=== PATIENT | female | born 1980 | race Caucasian/White ===

== ENCOUNTER 2020-05-02 19:31 | Inpatient (IN) ==
[2020-05-02] MEDS ORDERED: OXYTOCIN 30 UNITS/500 ML BAG IV PRN (20:51)
[2020-05-02] MEDS ORDERED: miSOPROStoL 50 MCG TAB PO ONE (21:16)
[2020-05-02 21:27] LABS: Hematocrit (blood only) 39.1 % (37-47); Hemoglobin 13.7 g/dL (12.0-16.0); Mean Corpuscular Hemoglobin 33.7 pg (25-34); Mean Corpuscular Volume 96.1 fL (80-100); Mean Platelet Volume 11.4 fL (7.4-10.4); Platelet Count 199 K/uL (130-400); Red Blood Count 4.07 M/uL (4.2-5.4); White Blood Count 10.43 K/uL (4.8-10.8)
[2020-05-02] MEDS ORDERED: PENICILLIN G POTASSIUM 6 MU in DEXTROSE 5% 250 ML IV ONE (21:30)
[2020-05-02] MEDS: LACTATED RINGER'S 1,000 ML IV PRN (21:53)
[2020-05-03] MEDS ORDERED: miSOPROStoL 50 MCG TAB PO ONE (01:56)
[2020-05-03] MEDS: PENICILLIN G POTASSIUM 3 MU in DEXTROSE 5% 100 ML IV PRN ×3 (02:04→10:35)
[2020-05-03] MEDS ORDERED: BUTORPHANOL TARTRATE 1 MG/ML VIAL IV PRN (06:48)
[2020-05-03] MEDS ORDERED: BUPIVACAINE 0.25% 30 ML VIAL ONE (09:21)
[2020-05-03] MEDS ORDERED: ePHEDrine sulfate 50 MG/ML AMP ONE (09:21)
[2020-05-03] MEDS ORDERED: SODIUM CHLORIDE 0.9% INJ 10 ML VIAL ONE (09:21)
[2020-05-03] MEDS ORDERED: fentaNYL citrate 100 MCG/2 ML VIAL ONE (09:22)
[2020-05-03] MEDS ORDERED: fentaNYL 2MCG/ML ROPIVACAINE 1.25MG/ML 100 ML BAG EPI ONE (09:22)
[2020-05-03] MEDS ORDERED: ePHEDrine sulfate 50 MG/ML AMP IV PRN (09:29)
[2020-05-03] MEDS ORDERED: NALOXONE HCL 0.4 MG/1 ML VIAL/CARP IV PRN (09:29)
[2020-05-03] MEDS ORDERED: diphenhydrAMINE 50 MG/ML VIAL IV PRN (09:29)
[2020-05-03] MEDS ORDERED: fentaNYL 2MCG/ML ROPIVACAINE 1.25MG/ML 100 ML BAG EPI PRN (09:29)
[2020-05-03] MEDS ORDERED: NALOXONE HCL 1 MG in SODIUM CHLORIDE 0.9% 1000ML 1,000 ML IV PRN (09:29)
--- NOTE | 2020-05-03 09:29 | Anesthesiology Consultation ---
Date of Service May 03, 2020 Assessment & Plan ASA ASA2 Proposed Anesthesia Anesthesia Type: Labor Epidural Risk / Benefits Reviewed With: PT / POA / Parent / Guardian, Accepts Plan and Informed Consent Obtained History Height/Weight Height: 5 ft 8 in Weight: 88.451 kg Allergies Allergy/AdvReac Type Severity Reaction Status Date / Time walnut Allergy Blister Verified 03/20/20 08:01 acetaminophen [From Tylenol] AdvReac Nausea Verified 05/02/20 20:27 Medications Home Medications Medication Instructions Recorded Confirmed Last Taken levocetirizine [Xyzal] 5 mg PO DAILY 05/02/20 05/02/20 05/02/20 08:00 prenat.vits,tyra,xji-zvvw-kyutj 1 tab PO DAILY 05/02/20 05/02/20 05/02/20 08:00 [ Vitamin] Active Medications Generic Name Dose Route Start Last Admin Trade Name Freq PRN Reason Stop Dose Admin Lactated Ringer's 1,000 mls @ 125 mls/hr 05/02/20 20:51 05/03/20 10:32 Lr IV 05/04/20 20:50 125 mls/hr .Q8H PRN Infusion L&D Protocol Protocol Penicillin G Potassium 3 mu/ 106 mls @ 100 mls/hr 05/02/20 20:51 05/03/20 1 0:35 Dextrose IV 05/12/20 20:50 100 mls/hr Q4H PRN Administration Give until delivery Past Medical History Medical History Panic attack Hasn't had one this Seasonal allergies take benadryl as needed. Exercise / Class Metabolic Activity II 4-5 Yardwork/Stairs/Walk up hill Past Family History Family History Mother Colon cancer Father Pancreatic cancer Past Surgical History Surgical History H/O shoulder surgery reconstructive 1998 [place] teeth extracted Past Anesthesia History No Hx of Anesthesia Complications and No Family Hx of Anesthesia Complications History of PONV No Hx of PONV and No Hx of Motion Sickness Social History Smoking Status: Never smoker Do You Dip or Chew Tobacco: No Hx Alcohol Use: No Hx Substance Use: No substance use type: does not use Review of Systems denies fever/cough/ colds/ chest pain/ SOB/ ODALIS denies ODALIS Physical Exam Vital Signs Last Vital Signs Temp 36.7 C 05/03/20 07:06 Pulse 76 05/03/20 10:38 Resp 22 05/03/20 07:06 BP 128/60 05/03/20 10:36 Pulse Ox 98 05/03/20 10:38 ENMT Mouth: no TMJ abnormality and no dentition abnormality Thyromental Distance: > or= 3.5 Finger Breadths Mallampati Class: II Neck neck extension not limited Respiratory normal respiratory effort; no respiratory distress Auscultation: lungs clear to auscultation bilaterally Cardiovascular Rate/Rhythm: regular rate and regular rhythm Neurologic moves all extremities Psychiatric Orientation: alert and oriented x 3 Testing Laboratory Results 05/02/20 21:17
[2020-05-03] MEDS: LACTATED RINGER'S 1,000 ML IV PRN (10:32)
[2020-05-03] MEDS ORDERED: OXYTOCIN 30 UNITS/500 ML BAG IV PRN ×2 (11:43→14:01)
[2020-05-03] MEDS ORDERED: DIPHTHERIA/TETANUS/PERTUSSIS 0.5 ML SYR/VIAL IM ONE (14:01)
[2020-05-03] MEDS ORDERED: BENZOCAINE 20% AER SPR 82.5 GM CAN EXT PRN (14:01)
[2020-05-03] MEDS ORDERED: HYDROCORTISONE ACETATE 25 MG SUPP PR PRN (14:01)
[2020-05-03] MEDS ORDERED: SUPERCREAM 0.870% 15 GM JAR EXT PRN (14:01)
--- NOTE | 2020-05-03 14:30 | Anesthesia Procedure Note ---
Date of Service May 03, 2020 Anesthesia Post Epidural Note Vital Signs Vital Signs: Temp Pulse Resp BP Pulse Ox 36.7 C 73 20 126/73 98 05/03/20 07:06 05/03/20 14:22 05/03/20 14:03 05/03/20 14:22 05/03/20 13:43 Notes Mental Status: alert / awake / arousable and participated in evaluation Patient Amnestic to Procedure: Yes Nausea / Vomiting: adequately controlled Pain: adequately controlled Airway Patency, RR, SpO2: stable & adequate BP & HR: stable & adequate Hydration State: stable & adequate Anesthetic Complications: no major complications apparent and Pt Satisfied with anesthetic care
[2020-05-03] MEDS: IBUPROFEN 600 MG TAB PO PRN ×3 (15:28→23:38)
--- NOTE | 2020-05-03 16:10 | Delivery Summary ---
DATE OF OPERATION: 05/03/2020 1, para 1. Blood type is B positive, was admitted with rupture of membranes, 37 weeks 2 days. Beta strep screen was sent, but we could get the results back, so we started her on a penicillin. After admission, rupture of membranes was confirmed and she was started on p.o. Cytotec, 4 hours later, another dose of p.o. Cytotec. She began to contract, have discomfort. She walked for a while and got a couple doses of IV Stadol and eventually went to epidural, sooner after she had epidural, she was fully dilated. We let her labor down a little bit, started her on some low dose Pitocin and she was able to push out a live male via direct occiput anterior position over an intact perineum. Infant was suctioned through the mouth and the nose. Body was delivered without difficulty. We allowed the cord to pulse for a minute, then it was clamped and cut. With IV Pitocin running, the placenta was removed intact. Inspection of the perineum revealed a small superficial first-degree laceration at about 6 o'clock. This was repaired anatomically. The vaginal mucosa was approximated out to beyond the hymenal ring. A deep suture was used to approximate the bulbocavernosus muscle, separate deep suture was used to approximate the perineal body and a running subcuticular suture was used to approximate the perineal skin edges. I attest to the content of the Intraoperative Record and any orders documented therein. Any exception s are noted below.
[2020-05-03] MEDS: DOCUSATE SODIUM 100 MG CAP PO SCH (20:50)
[2020-05-04 05:54] LABS: Hemoglobin 11.6 g/dL (12.0-16.0); Mean Corpuscular Hgb Conc 34.1 g/dL (32-36); Mean Corpuscular Volume 96.6 fL (80-100); Mean Platelet Volume 11.5 fL (7.4-10.4); Platelet Count 166 K/uL (130-400); RDW Coefficient of Variation 13.2 % (11.5-14.5); RDW Standard Deviation 45.8 fL (36.4-46.3); Red Blood Count 3.52 M/uL (4.2-5.4); White Blood Count 10.96 K/uL (4.8-10.8)
[2020-05-04] MEDS: IBUPROFEN 600 MG TAB PO PRN ×4 (06:07→20:37)
[2020-05-04] MEDS: DOCUSATE SODIUM 100 MG CAP PO SCH ×2 (08:14→20:38)
[2020-05-04] MEDS: PRENATAL VITAMIN 1 TAB PO SCH (08:14)
--- NOTE | 2020-05-04 08:48 | Obstetrical Progress Note ---
Date of Service May 04, 2020 Assessment & Plan Admission and Anticipated Discharge Date Admission Date: May 02, 2020 Physical Exam Physical Exam: abdomen soft and non tender no calf tenderness ambulating well vaginal bleeding scant hgb 11.6 Results & Data ([facility]) Vital Signs (Past 12 Hours) Vital Signs Temp Pulse Resp BP Pulse Ox 05/04/20 07:17 36.6 C 68 18 115/72 99 05/04/20 03:40 36.5 C 68 17 117/70 99 05/03/20 23:35 36.8 C 63 16 111/63 96
[2020-05-04] MEDS ORDERED: bisacodyL 5 MG TABEC PO SCH (20:00)
[2020-05-05] MEDS: IBUPROFEN 600 MG TAB PO PRN ×5 (01:22→18:40)
[2020-05-05] MEDS ORDERED: bisacodyL 10 MG SUPP PR PRN (06:00)
[2020-05-05 06:37] LABS: Hematocrit (blood only) 36.4 % (37-47); Hemoglobin 12.4 g/dL (12.0-16.0)
[2020-05-05] MEDS: DOCUSATE SODIUM 100 MG CAP PO SCH (08:16)
[2020-05-05] MEDS: PRENATAL VITAMIN 1 TAB PO SCH (08:17)
--- NOTE | 2020-05-05 09:27 | Obstetrical Progress Note ---
Date of Service May 05, 2020 Assessment & Plan Admission and Anticipated Discharge Date Admission Date: May 02, 2020 Physical Exam Physical Exam: abdomen soft and non tender ambulating well no calf tenderness vaginal bleeding scant hgb 12.4 Results & Data ([place]) Vital Signs (Past 12 Hours) Vital Signs Temp Pulse Resp BP Pulse Ox 05/05/20 04:00 36.7 C 72 16 129/72 98 05/04/20 23:10 36.3 C L 70 18 131/73 97
== END 2020-05-05 18:50 | disposition home or self-care (01) | DRG 807 ==
LOC: OPB 19:31 → 4S1 19:31 → 4S2 05-03 16:50